=== PATIENT | female | born 1975 | race Caucasian/White ===

== ENCOUNTER → 2019-12-11 10:28 | Outpatient (CLI) | payer OTHER, SELFPAY ==
--- NOTE | ~2019-12-11 | US_ITS ---
EXAMINATION: US right upper quadrant DATE: 12/11/2019 11:24 INDICATION: Abnormal liver function tests. TECHNIQUE: Multiple grayscale and Doppler ultrasound images of the abdomen were obtained. COMPARISON: None FINDINGS: Abdominal aorta is normal in caliber. The visualized portions of the head and body of the p ancreas are normal. There is diffuse hepatic steatosis. No liver surface nodularity. There is normal flow in main portal vein. The gallbladder is normal in size and contains sludge. No gallstones or gal lbladder wall thickening. There was no sonographic Cleaning sign. The common duct is normal and measure s 4 mm. IMPRESSION: 1. Diffuse hepatic steatosis. Reviewed, dictated and finalized at location A.
== END ==
PROVIDERS: PCP Student in an Organized Health Care Education/Training Program; Visit Provider Physician Assistant Medical
DX: M05.79 Rheumatoid arthritis with rheumatoid factor of multiple sites without organ or systems involvement (principal); R79.89 Other specified abnormal findings of blood chemistry; K76.0 Fatty (change of) liver, not elsewhere classified
CPT/HCPCS: 76705

== ENCOUNTER → 2019-12-11 10:30 | Outpatient (CLI) | payer OTHER, SELFPAY ==
--- NOTE | ~2019-12-11 | MM_ITS ---
EXAMINATION: MM screening allison BI w robe HISTORY: Screening TECHNIQUE: Craniocaudal and mediolateral oblique 3-D tomosynthesis images were obtained and synthetic 2-D images were generated. CAD analysis was submitted and interpreted. COMPARISON: Comparison to multiple prior studies sequentially, with oldest reviewed study dated 07/2012. BREAST PARENCHYMAL COMPOSITION: The breasts are heterogeneously dense, which may obscure small masses . FINDINGS: There is no evidence of suspicious mass, calcification, or architectural distortion to sugg est malignancy in either breast. There has been no suspicious interval change. IMPRESSION: 1. No mammographic evidence of malignancy. 2. Recommend routine screening mammography in one year. BI-RADS Category 1: Negative Reviewed, dictated and finalized at location A.
== END ==
PROVIDERS: PCP Student in an Organized Health Care Education/Training Program; Visit Provider Nurse Practitioner Obstetrics & Gynecology
DX: Z12.31 Encounter for screening mammogram for malignant neoplasm of breast (principal)
CPT/HCPCS: 77063; 77067

== ENCOUNTER → 2021-02-12 16:11 | Outpatient (CLI) | payer OTHER, SELFPAY ==
--- NOTE | ~2021-02-12 | MM_ITS ---
EXAMINATION: MM screening allison BI w robe HISTORY: Screening TECHNIQUE: Craniocaudal and mediolateral oblique 3-D tomosynthesis images were obtained and synthetic 2-D images were generated. CAD analysis was submitted and interpreted. COMPARISON: Comparison to multiple prior studies sequentially, with oldest reviewed study dated 07/2012. BREAST PARENCHYMAL COMPOSITION: The breasts are heterogeneously dense, which may obscure small masses . FINDINGS: There is no evidence of suspicious mass, calcification, or architectural distortion to sugg est malignancy in either breast. There has been no suspicious interval change. IMPRESSION: 1. No mammographic evidence of malignancy. 2. Recommend routine screening mammography in one year. BI-RADS Category 1: Negative Reviewed, dictated and finalized at location A. L LATHER
== END ==
PROVIDERS: PCP Student in an Organized Health Care Education/Training Program; Visit Provider Nurse Practitioner Obstetrics & Gynecology
DX: Z12.31 Encounter for screening mammogram for malignant neoplasm of breast (principal)
CPT/HCPCS: 77063; 77067

== ENCOUNTER → 2021-12-30 12:47 | Outpatient (CLI) | payer OTHER, SELFPAY ==
--- NOTE | ~2021-12-30 | MR_ITS ---
EXAMINATION: MR brain/brain stem wo/w con DATE: 12/30/2021 14:01 INDICATION: Dizziness. TECHNIQUE: Magnetic resonance imaging (MRI) of the brain and brainstem was performed without and with 20 mL MultiHance intravenous contrast. COMPARISON: Head CT 07/04/2013 FINDINGS: There are a few foci of nonspecific increased T2-weighted signal intensity in the cerebral white matter, which is within normal limits for the patient's age. There is no intracranial hemorrhag e, acute infarction, or abnormal intracranial mass lesion. The ventricles are normal in size. The orb its are normal. The paranasal sinuses are clear. The mastoid air cells are normal. IMPRESSION: 1. Normal brain. Reviewed, dictated and finalized at location A. IMPRESSION: 1. Normal brain.
== END ==
PROVIDERS: PCP Student in an Organized Health Care Education/Training Program; Visit Provider Student in an Organized Health Care Education/Training Program
DX: R42 Dizziness and giddiness (principal)
CPT/HCPCS: 70553; A9577

== ENCOUNTER → 2022-05-19 14:07 | Outpatient (CLI) | payer OTHER, SELFPAY ==
--- NOTE | ~2022-05-19 | MM_ITS ---
EXAMINATION: MM screening allison BI w robe HISTORY: Screening TECHNIQUE: Craniocaudal and mediolateral oblique 3-D tomosynthesis images were obtained and synthetic 2-D images were generated. CAD analysis was submitted and interpreted. COMPARISON: Comparison to multiple prior studies sequentially, with oldest reviewed study dated 09/21. BREAST PARENCHYMAL COMPOSITION: The breasts are heterogeneously dense, which may obscure small masses . FINDINGS: There is no evidence of suspicious mass, calcification, or architectural distortion to sugg est malignancy in either breast. There has been no suspicious interval change. IMPRESSION: 1. No mammographic evidence of malignancy. 2. Recommend routine screening mammography in one year. BI-RADS Category 1: Negative Reviewed, dictated and finalized at location A.
== END ==
PROVIDERS: PCP Student in an Organized Health Care Education/Training Program; Visit Provider Nurse Practitioner Obstetrics & Gynecology
DX: Z12.31 Encounter for screening mammogram for malignant neoplasm of breast (principal)
CPT/HCPCS: 77063; 77067

== ENCOUNTER 2022-10-13 08:24 | Outpatient (CLI) | payer OTHER, SELFPAY ==
[2022-10-13 09:24] LABS: Hemoglobin 13.7 g/dL (12.0-15.0)
[2022-10-13 09:33] LABS: Anion Gap 5 mmol/L (8-16); Blood Urea Nitrogen 15 mg/dL (7-17); Calcium 8.9 mg/dL (8.4-10.2); Carbon Dioxide 26 mmol/L (22-30); Chloride 101 mmol/L (98-107); Estimated Glomerular Filt Rate > 60; Glucose 112 mg/dL (65-110); Potassium 3.3 mmol/L (3.4-5.0); Sodium 132 mmol/L (137-145)
[2022-10-13 09:36] LABS: INR 0.9; Prothrombin Time 12.7 Seconds (11.1-14.7)
[2022-10-13 09:37] LABS: Partial Thromboplastin Time 26.1 SECONDS (22.3-36.8)
== END 2022-10-13 08:25 | disposition home or self-care (01) ==
LOC: ANHSURGERY 08:28
PROVIDERS: Anesthesiology; PCP Student in an Organized Health Care Education/Training Program; Visit Provider Obstetrics & Gynecology Gynecology
DX: K76.0 Fatty (change of) liver, not elsewhere classified (principal); D64.9 Anemia, unspecified; T50.2X5A Adverse effect of carbonic-anhydrase inhibitors, benzothiadiazides and other diuretics, initial encounter; Z01.818 Encounter for other preprocedural examination
CPT/HCPCS: 36415; 80048; 85014; 85018; 85610; 85730

== ENCOUNTER 2022-10-17 02:48 | Day surgery (SDC) | payer OTHER, SELFPAY ==
[2022-10-12 10:14] VITALS: BMI 38.6
--- NOTE | 2022-10-12 10:45 | PC.NURSE ---
Report to the Outpatient Waiting Room, entrance under the green pavilion located off [facility], at 1000 on 10-17-22. Planned Procedure Time: 1200. Time changes happen often and if your time is changed the preop area will call you the afternoon before. - You and your visitor will be asked to self-screen and do not enter if you have any COVID symptoms. - A mask is optional within the hospital at this time. Patients may have clear liquids (water, carbonated beverages, clear teas, apple juice) until 3 hours prior to surgery with a maximum of 20 ounces. 0900 - No food from midnight until time of surgery - Infants may have breast milk until 4 hours before surgery, formula 6 hours prior to surgery. - Children will be allowed to drink immediately following surgery. If applicable, please bring a bottle or sippy cup to assist with drinking. Juice, water, soda, and popsicles are readily available. For infants on formula, please bring formula the day of surgery. Pacifiers are allowed. Take the following medications with a SIP of water the morning of surgery: Leflunomide DO NOT STOP ANY OF YOUR OTHER PRESCRIPTION MEDICATIONS PRIOR TO SURGERY ?EXCEPT THE FOLLOWING Medications to discontinue per physician: Vitamins and supplements Date to take last dose: 10-14-22 Please no make-up, nail czech, hairspray, perfume, deodorant, or body powder the day of surgery. No jewelry (including any body piercings) or valuables the day of surgery, leave them at home. Please take a shower or bath the night before, or the morning of, surgery with an antibacterial soap. Wear comfortable, loose fitting clothing. Children are encouraged to wear pajamas. - Jewelry must be removed prior to entering the operating room. Rings and piercings that are not removed may be cut off. - The hospital will not accept responsibility for valuables. - Please leave all valuables, including medications, at home the day of surgery. If you are going home after surgery, a licensed stock driver must drive you home. - NO public transportation without another adult if you receive anesthesia. - We recommend that an adult stay with you for 24 hours following discharge. - We also recommend that you do not drive, make important decision, drink alcoholic beverages, or take any drugs that were not prescribed by your health care provider for at least 24 hours after your discharge time. For Pediatric surgeries, we recommend two adults accompany the child home. Follow any additional instructions given to you from your surgeon. If you or anyone in your household have experienced Covid symptoms in the past week, please notify your surgeon or the nurse liaison at the phone number below for possible testing. Telephone instructions given to Christina Erwin and asked if any additional questions and then verbalized understanding. Patient advised to call surgeon office or pre surgery nurse liaison [phone] if any additional questions.
--- NOTE | 2022-10-17 09:19 | WPDHPUPDATE1 ---
History and Physical Update Update Date/Time: 10/17/22 09:19 History and Physical has been reviewed, including an updated exam of the patient. There are NO changes in the patient's condition. Risks, benefits, and alternatives have been discussed and questions answered. Patient agrees to proceed with procedure.
--- NOTE | 2022-10-17 09:19 | PM.HPGS ---
History of Present Illness History of Present Illness Consent: Risks, benefits, and alternatives have been discussed and questions answered. Patient agrees to proceed with procedure. Chief complaint: abn uterine bleeding, fibroids Narrative: Chasity Erwin is a 47 year old female who presented to us as a new patient. She had complaints of bleeding from 04/12 to 07/27. Patient's prior physician had performed a pelvic ultrasound which showed 2 fibroids. It was recommended to undergo D&C hysteroscopy to further evaluate. Risks of infection, bleeding, perforation, and possible pathology were reviewed. Due to fibroids being found on ultrasound was recommended to undergo D&C hysteroscopy in the hospital. Patient voices understanding and agrees to proceed. Review of Systems Constitutional: Constitutional: Reports headache(s) PMFSH Past Medical History Medical History (Updated 10/17/22 @ 09:40 by Jennie Quiñonez MD) Anxiety and depression (normal spontaneous vaginal delivery) X2 Rheumatoid arthritis Surgical History Surgical History (Updated 10/17/22 @ 09:39 by Jennie Quiñonez MD) History of removal of ovarian cyst 2009 Family History Family History (Updated 10/24/13 @ 07:13 by DOCTOR UNKNOWN) Mother Family history of thyroid disease Social History Social History Smoking packs per day: 0.5 Smoking cigarettes per day: 10.0 Years smoked: 15 Smoking pack-years: 7.50 Smoking status: Former smoker Tobacco type: cigarettes and e-cigarettes/vaping Second hand tobacco smoke exposure: No Additional smoking assessment comments: still vapes today ocassionally Alcohol intake: current Alcohol use details: occasionally Substance use: current Substance use type: marijuana Living arrangements: with family Spiritual care concerns: No Meds Home Medications and Allergies Home Medications Medication Instructions Recorded Confirmed Type cholecalciferol (vitamin D3) 50 50 mcg PO DAILY 10/12/22 10/12/22 History mcg (2,000 unit) tablet (Vitamin D3) elderberry fruit 200 mg capsule 200 mg PO DAILY 10/12/22 10/12/22 History hydrochlorothiazide 25 mg tablet 25 mg PO DAILY 10/12/22 10/12/22 History leflunomide 20 mg tablet 20 mg PO DAILY 10/12/22 10/12/22 History polysaccharide iron complex 150 mg 150 mg PO BID 10/12/22 10/12/22 History iron capsule tocilizumab 162 mg/0.9 mL 162 mg subcut WEEKLY 10/12/22 10/12/22 History subcutaneous pen injector (Actemra ACTPen) turmeric root extract 500 mg tablet 500 mg PO DAILY 10/12/22 10/12/22 History Allergies Allergy/AdvReac Type Severity Reaction Status Date / Time No Known Allergies Allergy Verified 10/12/22 10:03 Exam Const: General: healthy appearing and alert Orientation/consciousness: patient oriented x3 Resp: Effort & Inspection: normal respiratory effort GI: GI Palp: Yes Soft to palpation, No Tenderness to palpation present (GI) and No Palpable mass present : General: Yes deferred (Deferred to operating room) Neuro: General: patient oriented x3 Assessment and Plan Assessment and plan (1) Menorrhagia: Code(s): N92.0 - Excessive and frequent menstruation with regular cycle Status: Acute Assessment and Plan: Prolonged vaginal bleeding with fibroids by ultrasound Plan to proceed with D&C hysteroscopy
[2022-10-17 10:00] VITALS: BP 136/87; PULSE 92; RESP 16; TEMP 36.3; O2SAT 98; BMI 38.8
--- NOTE | 2022-10-17 10:52 | P.PNAN_ITS ---
Anes - Initial Pre Proc Eval Procedure: Operation Date: 10/17/22 12:00 Proposed Procedures p Hysteroscopy, Dilation and Curettage - Jennie Quiñonez MD Date/Time: 10/17/22 10:52 Surgeon: Jennie Quiñonez MD Pre Op Diagnosis: abn uterine bleeding, fibroids Patient Data Age: 47 Gender: F Height: 1.63 m Weight: 102.06 kg Allergies Allergy/AdvReac Type Severity Reaction Status Date / Time No Known Allergies Allergy Verified 10/12/22 10:03 Home Medications Medication Instructions Recorded Confirmed Type cholecalciferol (vitamin D3) 50 50 mcg PO DAILY 10/12/22 10/12/22 History mcg (2,000 unit) tablet (Vitamin D3) elderberry fruit 200 mg capsule 200 mg PO DAILY 10/12/22 10/12/22 History hydrochlorothiazide 25 mg tablet 25 mg PO DAILY 10/12/22 10/12/22 History leflunomide 20 mg tablet 20 mg PO DAILY 10/12/22 10/12/22 History polysaccharide iron complex 150 mg 150 mg PO BID 10/12/22 10/12/22 History iron capsule tocilizumab 162 mg/0.9 mL 162 mg subcut WEEKLY 10/12/22 10/12/22 History subcutaneous pen injector (Actemra ACTPen) turmeric root extract 500 mg tablet 500 mg PO DAILY 10/12/22 10/12/22 History Patient hx anesthesia problems: none Family hx anesthesia problems: none Results Review: All pre-operative results and documents have been reviewed as part of the pre- operative evaluation. [facility] Past Medical History Medical History Anxiety and depression (normal spontaneous vaginal delivery) X2 Rheumatoid arthritis Surgical History Surgical History History of removal of ovarian cyst 2009 Family History Family History Mother Family history of thyroid disease Social History Social History Smoking packs per day: 0.5 Smoking cigarettes per day: 10.0 Years smoked: 15 Smoking pack-years: 7.50 Smoking status: Former smoker Tobacco type: cigarettes and e-cigarettes/vaping Second hand tobacco smoke exposure: No Additional smoking assessment comments: still vapes today ocassionally Alcohol intake: current Alcohol use details: occasionally Substance use: current Substance use type: marijuana Living arrangements: with family Spiritual care concerns: No Anes - Eval Final PreProcedure Day of Procedure 10/17/22 10:52 Patient weight: obese Heart: regular rate and rhythm Lungs: clear to auscultation Airway: Mallampati scale class II Neurological: alert and oriented Last oral intake: >/= 8 hours ASA classification: III Emergent: no Anesthetic plan: proceed Anesthesia type and monitoring: general GIVS and standard monitoring Results Review: All pre-operative results and documents have been reviewed as part of the pre- operative evaluation. Informed Consent: The patient's anesthetic plan and its attendant risks and benefits were discussed with the patient/family/POA. Questions were solicited and answers provided to the satisfaction of the patient/family/POA.
[2022-10-17] MEDS: ACETAMINOPHEN 500 MG TABLET 1000 MG PO (11:03)
[2022-10-17] MEDS: LACTATED RINGERS 1,000 ML 30 ML IV CONT (11:03)
--- NOTE | 2022-10-17 12:14 | W.PM.PROC2 ---
Procedure Note - Detailed Date of Procedure 10/17/22 Pre-op Diagnosis Menorrhagia, fibroids Post-op Diagnosis Same Procedure Performed Hysteroscopic myomectomy and D&C Surgeon Jennie Quiñonez MD Anesthesia MAC Findings Uterus sounds to 11cm. There are large fibroids arising from the left sidewall and from the anterior fundus. Description of Procedure The patient is taken to the operating room and placed under anesthesia in the dorsal lithotomy position. She was prepped and draped in usual sterile fashion. [place] speculum was placed in the vagina and the cervix grasped on the anterior lip with a tenaculum. The uterus is sounded to 11cm. The cervix is serially dilated to a 6 [place]gar. The large Aveeta hysteroscope was placed and with the above-stated findings the large resection device is placed. Under direct visualization the left sidewall fibroid is removed in its entirety. The anterior fibroid is significantly removed. However, as each layer is removed, a new layer appears. This is consistent with a intramural fibroid. Once the fibroid anteriorly is shaved flat with the endometrium decision was made to stop as I did not know if it was a through and through fibroid. The hysteroscope was removed and the sharp curette used to curette the endometrium until a good uterine cry was noted in all areas. All instruments are removed. Sponge, needle, and instrument counts are correct per the OR staff. Patient is awakened from anesthesia and taken to recovery in stable condition. Estimated Blood Loss 5 Drains No Packing No Pathology Yes (Endometrial shavings and curettings) Complications No immediate complications Condition Stable Disposition PACU
[2022-10-17 12:17] VITALS: BP 123/71; PULSE 74; RESP 16; O2SAT 100
[2022-10-17 12:45] VITALS: BP 119/75; PULSE 56; RESP 16; O2SAT 100
[2022-10-17 13:40] VITALS: BP 132/88; PULSE 72; RESP 16
== END 2022-10-17 13:48 | disposition home or self-care (01) ==
PROVIDERS: PCP Student in an Organized Health Care Education/Training Program; Visit Provider Obstetrics & Gynecology Gynecology
PROC: 0U5B8ZZ Destruction of Endometrium, Via Natural or Artificial Opening Endoscopic (ICD-10-PCS; CPT 58563; principal; 2022-10-17 12:00)
DX: N92.0 Excessive and frequent menstruation with regular cycle (principal); D25.9 Leiomyoma of uterus, unspecified; F41.8 Other specified anxiety disorders; M06.9 Rheumatoid arthritis, unspecified; F17.290 Nicotine dependence, other tobacco product, uncomplicated; E66.9 Obesity, unspecified; Z68.38 Body mass index [BMI] 38.0-38.9, adult
CPT/HCPCS: 58561; 36415; 80048; 85014; 85018; 85610; 85730; 88305; A9270; J1100; J1885; J2250; J2405; J2704; J3010; J7120